=== PATIENT | male | born 1995 | race Caucasian/White ===

== ENCOUNTER 2024-05-15 17:36 | Observation (INO) ==
[2024-05-15 18:12] VITALS: TEMP 98.2
--- NOTE | 2024-05-15 18:42 | Emergency Department Note ---
Impression & Plan Hypoxia, Overdose, Respiratory failure ED Provider Note NAME: BUBBA WRIGHT AGE: 28 SEX: M : 1995 ARRIVES VIA: Walk-In INFORMANT: Patient ED PROVIDER(S): Joseph Foley DO CHIEF COMPLAINT: Intentional overdose HPI: Patient is a 28-year-old male who presents to the ER with a past medical history of bipolar disorder. History is unobtainable from the patient as he is very tired. He spoke with the personal care worker and noted that he overdosed some around 4 or 430 and took 50 tabs of 50 mg of Benadryl. He did this to sleep per her report and not to kill himself. Family is present at bedside and notes that he is extremely tired. ADDITIONAL HISTORY OBTAINED: Per HPI Chronic Medical/Social Conditions Affecting Care: Per HPI PAST MEDICAL HISTORY:See Below PAST SURGICAL HISTORY:See Below FAMILY HISTORY:See Below SOCIAL HISTORY:See Below HOME MEDICATIONS:See Below ALLERGIES:See Below VITALS:See Below PHYSICAL EXAMINATION: GENERAL: Sitting up in bed, alert but extremely tired, moving his head and stating his name but in a slow soft speech EYE EXAM: normal conjunctiva. PERRL and EOM's grossly intact. OROPHARYNX: no exudate, no erythema, lips, buccal mucosa, and tongue normal and mucous membranes are moist NECK: supple, no nuchal rigidity, no adenopathy, non-tender LUNGS: Clear to auscultation. Normal chest wall mechanics HEART: no murmurs, S1 normal and S2 normal UPPER EXTREMITIES: upper extremities are grossly normal. LOWER EXTREMITIES: No pitting edema. NEURO EXAM: Awake, alert, able to state his name very softly and move his upper extremities. MEDICAL DECISION MAKING: Patient is a 28-year-old male who presents ER for above-stated complaint. IV was established blood work was obtained. He was initially tachycardic and slightly hypertensive and hypoxic. He was placed on 2 L nasal cannula. He took 2.5 g of Benadryl. I discussed this with [place] poison control. They recommended close observation and based on his QRS and qTc he did not require bicarb or mag at this time. He did remain on 2 L nasal cannula. Labs show no significant leukocytosis or anemia. INR was unremarkable. VBG with a pH of 7.4. BMP with LFTs bilirubin and mag was unremarkable. Troponin was negative. Tox was negative. Chest x-ray was clean. Patient was given IV fluids. Updated at bedside discussed with the hospitalist for further evaluation management treatment due to the hypoxia and sedation. Consults/Care Managements Discussions: Per MDM Triage Nursing notes reviewed. Limited review of prior medical records performed Vital Signs: reviewed and remarkable for tachy Differential diagnosis: Overdose, toxicologic, infection, hypoglycemia, electrolyte abnormalities, cardiac sources, intracerebral event, neurologic, trauma, as well as other pathologies. ER treatment provided: See below Diagnostics interpreted by me include EKG and cardiac monitoring as listed below: -Cardiac Monitoring: An order was placed for continuous cardiac monitoring. The monitor shows a rate of 110 with sinus rhythm. -ECG: Sinus tachycardia rate of 108 Left axis No PVCs QTc 406 QRS 94 -Laboratory studies:Interpreted by me as stated above in MDM and shown below. Imaging studies: Xrays: As interpreted by me: Portable AP upright view of the chest shows no performed. CTs show: none Procedures:none Critical Care: I have personally spent 32 minutes of critical care time in the direct management of this patient. This includes bedside care, interpretation of diagnostic studies, and testing, discussion with consultants, patient, and family members, and other required patient management activities. This 32 minutes is in excess of all separately billable procedures. Past Med/Surg History Problem List (Updated 05/15/24 @ 23:51 by Joseph Foley DO) Respiratory failure (Acute) Hypoxia (Acute) Overdose (Acute) Abnormal ultrasound of neck Enlarged lymph node in neck Bipolar 1 disorder Medical History Back muscle spasm Bipolar 1 disorder History of IBS Mood disorder Surgical History S/P wisdom tooth extraction Family History Mother Cancer Father Prostate cancer Grandfather Prostate cancer Colorectal cancer Denies family history of Ovarian cancer Myocardial infarction Breast cancer Social History (Updated 10/03/23 @ 14:30 by TATIANA Thomas) Smoking Status: Current every day smoker Tobacco Type: Cigarettes Age Started Using Tobacco: 12; Cigarettes Per Day: 1-2; Second Hand Exposure: No; Do You Dip or Chew Tobacco: No; Hx Alcohol Use: No Preferred Language: Serbian Communication Ability: Effective Visual Impairment: No Limitations Hearing Ability: Normal Sex Worker Or Escort Required: No marital status: Single Current Living Situation: Parent current occupational status: unemployed Feels Safe at Home: Yes Childhood Exposure to Second-Hand Smoke: Yes Diet: regular Diet Comment: low carb and high protein, med fat caffeine: Yes during the past year weight has: remained stable Dental Care, Regularly: Yes Physical Activity Frequency: Daily Seatbelt Use: always Sunscreen Use: Yes Allergies Allergies Allergy/AdvReac Type Severity Reaction Status Date / Time No Known Drug Allergies Allergy Unknown Unverified 10/03/23 14:24 fruit skins AdvReac Anaphylaxis Uncoded 10/03/23 14:24 Home Meds Home Medications Medication Instructions Recorded Confirmed lurasidone 60 mg tablet (Latuda) 120 mg PO QPM 11/29/20 05/15/24 lamotrigine 100 mg tablet 200 mg PO BID 10/03/23 10/03/23 clonazepam 1 mg tablet 1 mg PO HS 05/15/24 05/15/24 dextroamphetamine-amphetamine 10 10 mg PO BID 05/15/24 05/15/24 mg tablet dextroamphetamine-amphetamine ER 20 mg PO DAILY 05/15/24 05/15/24 20 mg 24hr capsule,extend release zolpidem 10 mg tablet 10 mg PO PRN Sleep 05/15/24 Previous Rx's Medication Instructions Recorded cyclobenzaprine 5 mg tablet 5 - 10 mg (1 - 2 x 5 mg) PO TID 10/03/23 PRN muscle spasm #30 tabs Results & Data (ED) Vital Signs Vital Signs - 24 hr 05/15/24 17:55 05/15/24 17:55 05/15/24 18:07 Temperature 36.8 C Temperature Source Oral Pulse Rate 112 H 106 H Pulse Rate [Apical] Pulse Rate from SpO2 Sensor Pulse Rhythm [Apical] Pulse Strength [Apical] Respiratory Rate 19 Respiratory Effort / Characteristics Non-Labored Spontaneous Respiratory Depth Normal Respiratory Pattern Regular Blood Pressure 132/79 Blood Pressure [Right Arm] Blood Pressure Mean 96 Blood Pressure Mean [Right Arm] Blood Pressure Position Lying Blood Pressure Position [Right Arm] Pulse Oximetry 95 95 Oxygen Delivery Method Room Air Room Air Oxygen Flow Rate Sepsis Recent Fever Within 48 Hours No Sepsis New/Unexplained Change in Mental Status N/A Sepsis Action Taken by Nursing No Action Required Oxygen Flow Rate - Titration Pulse Oximetry Post Tiitration 05/15/24 18:15 05/15/24 18:15 05/15/24 18:27 Temperature Temperature Source Pulse Rate Pulse Rate [Apical] Pulse Rate from SpO2 Sensor Pulse Rhythm [Apical] Pulse Strength [Apical] Respiratory Rate Respiratory Effort / Characteristics Respiratory Depth Respiratory Pattern Blood Pressure 90/69 L 90/69 L Blood Pressure [Right Arm] Blood Pressure Mean 71 71 Blood Pressure Mean [Right Arm] Blood Pressure Position Blood Pressure Position [Right Arm] Pulse Oximetry 88 L Oxygen Delivery Method Room Air Oxygen Flow Rate Sepsis Recent Fever Within 48 Hours Sepsis New/Unexplained Change in Mental Status Sepsis Action Taken by Nursing Oxygen Flow Rate - Titration 2 Pulse Oximetry Post Tiitration 96 05/15/24 18:30 05/15/24 18:30 05/15/24 18:30 Temperature Temperature Source Pulse Rate Pulse Rate [Apical] Pulse Rate from SpO2 Sensor Pulse Rhythm [Apical] Pulse Strength [Apical] Respiratory Rate Respiratory Effort / Characteristics Respiratory Depth Respiratory Pattern Blood Pressure 118/82 118/82 118/82 Blood Pressure [Right Arm] Blood Pressure Mean 91 91 91 Blood Pressure Mean [Right Arm] Blood Pressure Position Blood Pressure Position [Right Arm] Pulse Oximetry Oxygen Delivery Method Oxygen Flow Rate Sepsis Recent Fever Within 48 Hours Sepsis New/Unexplained Change in Mental Status Sepsis Action Taken by Nursing Oxygen Flow Rate - Titration Pulse Oximetry Post Tiitration 05/15/24 18:30 05/15/24 18:39 05/15/24 18:39 Temperature Temperature Source Pulse Rate 106 H 106 H 115 H Pulse Rate [Apical] Pulse Rate from SpO2 Sensor 106 H 115 H Pulse Rhythm [Apical] Pulse Strength [Apical] Respiratory Rate 15 18 Respiratory Effort / Characteristics Respiratory Depth Respiratory Pattern Blood Pressure Blood Pressure [Right Arm] Blood Pressure Mean Blood Pressure Mean [Right Arm] Blood Pressure Position Blood Pressure Position [Right Arm] Pulse Oximetry 97 93 97 Oxygen Delivery Method Nasal Cannula Oxygen Flow Rate 2 Sepsis Recent Fever Within 48 Hours Sepsis New/Unexplained Change in Mental Status Sepsis Action Taken by Nursing Oxygen Flow Rate - Titration Pulse Oximetry Post Tiitration 05/15/24 18:45 05/15/24 18:45 05/15/24 18:45 Temperature Temperature Source Pulse Rate Pulse Rate [Apical] Pulse Rate from SpO2 Sensor Pulse Rhythm [Apical] Pulse Strength [Apical] Respiratory Rate Respiratory Effort / Characteristics Respiratory Depth Respiratory Pattern Blood Pressure 117/88 117/88 117/88 Blood Pressure [Right Arm] Blood Pressure Mean 96 96 96 Blood Pressure Mean [Right Arm] Blood Pressure Position Blood Pressure Position [Right Arm] Pulse Oximetry Oxygen Delivery Method Oxygen Flow Rate Sepsis Recent Fever Within 48 Hours Sepsis New/Unexplained Change in Mental Status Sepsis Action Taken by Nursing Oxygen Flow Rate - Titration Pulse Oximetry Post Tiitration 05/15/24 18:45 05/15/24 18:48 05/15/24 18:51 Temperature Temperature Source Pulse Rate 102 H 100 H Pulse Rate [Apical] Pulse Rate from SpO2 Sensor 102 H Pulse Rhythm [Apical] Pulse Strength [Apical] Respiratory Rate 4 L 7 L Respiratory Effort / Characteristics Respiratory Depth Respiratory Pattern Blood Pressure 117/88 Blood Pressure [Right Arm] Blood Pressure Mean 96 Blood Pressure Mean [Right Arm] Blood Pressure Position Blood Pressure Position [Right Arm] Pulse Oximetry 95 80 L Oxygen Delivery Method Oxygen Flow Rate Sepsis Recent Fever Within 48 Hours Sepsis New/Unexplained Change in Mental Status Sepsis Action Taken by Nursing Oxygen Flow Rate - Titration Pulse Oximetry Post Tiitration 05/15/24 19:15 05/15/24 19:24 05/15/24 19:37 Temperature Temperature Source Pulse Rate 94 H Pulse Rate [Apical] 90 Pulse Rate from SpO2 Sensor 94 H Pulse Rhythm [Apical] Regular Pulse Strength [Apical] Normal Respiratory Rate 23 16 Respiratory Effort / Characteristics Non-Labored Spontaneous Respiratory Depth Normal Respiratory Pattern Regular Blood Pressure 128/87 Blood Pressure [Right Arm] 130/91 Blood Pressure Mean 103 Blood Pressure Mean [Right Arm] 104 Blood Pressure Position Blood Pressure Position [Right Arm] Lying Pulse Oximetry 98 98 Oxygen Delivery Method Nasal Cannula Oxygen Flow Rate 2 Sepsis Recent Fever Within 48 Hours Sepsis New/Unexplained Change in Mental Status Sepsis Action Taken by Nursing Oxygen Flow Rate - Titration Pulse Oximetry Post Tiitration 05/15/24 19:42 05/15/24 19:45 05/15/24 19:45 Temperature Temperature Source Pulse Rate Pulse Rate [Apical] Pulse Rate from SpO2 Sensor Pulse Rhythm [Apical] Pulse Strength [Apical] Respiratory Rate Respiratory Effort / Characteristics Respiratory Depth Respiratory Pattern Blood Pressure 130/91 125/86 125/86 Blood Pressure [Right Arm] Blood Pressure Mean 115 100 100 Blood Pressure Mean [Right Arm] Blood Pressure Position Blood Pressure Position [Right Arm] Pulse Oximetry Oxygen Delivery Method Oxygen Flow Rate Sepsis Recent Fever Within 48 Hours Sepsis New/Unexplained Change in Mental Status Sepsis Action Taken by Nursing Oxygen Flow Rate - Titration Pulse Oximetry Post Tiitration 05/15/24 19:45 05/15/24 19:54 05/15/24 20:00 Temperature Temperature Source Pulse Rate 91 H 93 H Pulse Rate [Apical] Pulse Rate from SpO2 Sensor 91 H 92 H Pulse Rhythm [Apical] Pulse Strength [Apical] Respiratory Rate 21 23 Respiratory Effort / Characteristics Respiratory Depth Respiratory Pattern Blood Pressure 130/89 Blood Pressure [Right Arm] Blood Pressure Mean 98 Blood Pressure Mean [Right Arm] Blood Pressure Position Blood Pressure Position [Right Arm] Pulse Oximetry 98 98 Oxygen Delivery Method Oxygen Flow Rate Sepsis Recent Fever Within 48 Hours Sepsis New/Unexplained Change in Mental Status Sepsis Action Taken by Nursing Oxygen Flow Rate - Titration Pulse Oximetry Post Tiitration 05/15/24 20:00 05/15/24 20:00 05/15/24 20:15 Temperature Temperature Source Pulse Rate 102 H Pulse Rate [Apical] Pulse Rate from SpO2 Sensor 101 H Pulse Rhythm [Apical] Pulse Strength [Apical] Respiratory Rate 23 Respiratory Effort / Characteristics Respiratory Depth Respiratory Pattern Blood Pressure 130/89 113/81 Blood Pressure [Right Arm] Blood Pressure Mean 98 94 Blood Pressure Mean [Right Arm] Blood Pressure Position Blood Pressure Position [Right Arm] Pulse Oximetry 99 Oxygen Delivery Method Oxygen Flow Rate Sepsis Recent Fever Within 48 Hours Sepsis New/Unexplained Change in Mental Status Sepsis Action Taken by Nursing Oxygen Flow Rate - Titration Pulse Oximetry Post Tiitration 05/15/24 20:15 Temperature Temperature Source Pulse Rate Pulse Rate [Apical] Pulse Rate from SpO2 Sensor Pulse Rhythm [Apical] Pulse Strength [Apical] Respiratory Rate Respiratory Effort / Characteristics Respiratory Depth Respiratory Pattern Blood Pressure 113/81 Blood Pressure [Right Arm] Blood Pressure Mean 94 Blood Pressure Mean [Right Arm] Blood Pressure Position Blood Pressure Position [Right Arm] Pulse Oximetry Oxygen Delivery Method Oxygen Flow Rate Sepsis Recent Fever Within 48 Hours Sepsis New/Unexplained Change in Mental Status Sepsis Action Taken by Nursing Oxygen Flow Rate - Titration Pulse Oximetry Post Tiitration Laboratory Data 05/15/24 18:08 05/15/24 18:08 Lab Results 05/15/24 05/15/24 05/15/24 Range/Units 18:08 19:03 19:05 WBC 9.32 (4.8-10.8) K/ul RBC 4.75 (4.70-6.10) M/uL Hgb 14.3 (14.0-18.0) g/dl Hct 42.4 (42.0-52.0) % MCV 89.3 (80.0-100.0) fL MCH 30.1 (25.0-34.0) pg MCHC 33.7 (32.0-36.0) g/dL RDW Std Deviation 43.3 (36.4-46.3) fL RDW Coeff of Domitila 13.2 (11.5-14.5) % Plt Count 323 (130-400) K/uL MPV 9.0 L (9.4-12.4) fL Immature Gran % (Auto) 0.3 % Neut % (Auto) 53.8 % Lymph % (Auto) 23.9 % [place] % (Auto) 13.7 % Eos % (Auto) 7.2 % Baso % (Auto) 1.1 % Neut # (Auto) 5.01 (1.40-6.50) K/uL Lymph # (Auto) 2.23 (1.20-3.40) K/uL [place] # (Auto) 1.28 H (0.11-0.59) K/uL Eos # (Auto) 0.67 H (0.00-0.50) K/uL Baso # (Auto) 0.10 (0.00-0.20) K/uL Immature Gran # (Auto) 0.03 (0.01-0.20) K/uL PT 11.6 (9.0-12.0) Seconds INR 1.1 (0.9-1.1) VBG pH 7.42 H (7.36-7.41) VBG pCO2 42 (38-50) mmHg VBG pO2 78 mmHg VBG HCO3 27 mmol/L VBG O2 Saturation 97.1 % VBG Base Excess 2.4 mEq/L Sodium 139 (136-145) mmol/L Potassium 3.6 (3.5-5.1) mmol/L Chloride 104 (98-107) mmol/L Carbon Dioxide 26 (21-32) mmol/L Anion Gap 9 (3-11) BUN 23 (6-23) mg/dl Creatinine 1.39 (0.6-1.4) mg/dl Est Cr Clr Drug Dosing Not Reportable Est GFR ( Amer) 78.3 ml/min Est GFR (Non-Af Amer) 67.5 ml/min BUN/Creatinine Ratio 16.5 (10-20) Glucose 111 H (70-99(Fasting)) mg/dl Lactate 0.9 (0.4-2.0) mmol/L Calcium 9.3 (8.6-10.3) mg/dl Magnesium 2.0 (1.7-2.4) mg/dl Total Bilirubin 0.6 (0.2-1.0) mg/dl AST 46 H (13-39) U/L ALT 34 (7-52) U/L Alkaline Phosphatase 43 (34-104) U/L Troponin I High Sens 13.4 (0-20) pg/ml Total Protein 7.3 (6.0-8.3) gm/dl Albumin 4.7 (3.4-5.0) gm/dl Globulin 2.6 (2.5-4.0) gm/dl Albumin/Globulin Ratio 1.8 (0.9-2) Salicylates < 3.0 L (3.0-30) mg/dl Acetaminophen < 3 L (10-30) ug/ml Ethyl Alcohol mg/dL < 10.0 (<10.0) mg/dl Administered Medications Lactated Ringer's (Lr) 1,000 mls @ 125 mls/hr IV .Q8H [facility] Stop: 05/16/24 12:44 Last Admin: 05/15/24 20:49 Dose: 125 mls/hr Documented By: RY Discontinued Medications Sodium Chloride (Nss) 2,000 mls @ 999 mls/hr IV .Q2H1M [facility] Stop: 05/15/24 20:45 Last Infusion: 05/15/24 21:04 Dose: Infused Documented By: Admin: 05/15/24 18:54 Dose: 999 mls/hr Documented By: TNK Discharge Plan Visit Data Chief Complaint: Overdose (Intentional) Stated Complaint: OVERDOSE ON SLEEPING MED ED Provider: Joseph Foley Discharge Problem: Hypoxia, Overdose, Respiratory failure Discharge Instructions Interventions: ED Discharge Assessment Last Done: 05/15/24 22:14 Discharge Problem: Overdose Qualifiers: Encounter type: initial encounter Injury intent: intentional self-harm Q ualified Code(s): T50.902A - Poisoning by unspecified drugs, medicaments and biological substances, intentional self-harm, initial encounter Respiratory failure Qualifiers: Chronicity: unspecified Respiratory failure complication: unspecified whether with hypoxia or hypercapnia Qualified Code(s): J96.90 - Respiratory failure, unspecified, unspecified whether with hypoxia or hypercapnia
[2024-05-15] MEDS: SODIUM CHLORIDE 0.9% 2,000 ML IV SCH (18:54)
[2024-05-15 19:01] LABS: Basophils % (auto) 1.1 %; Eosinophils # (auto) 0.67 K/uL (0.00-0.50); Eosinophils % (auto) 7.2 %; Hematocrit (blood only) 42.4 % (42.0-52.0); Hemoglobin 14.3 g/dl (14.0-18.0); Immature Granulocytes # (auto) 0.03 K/uL (0.01-0.20); Immature Granulocytes % (auto) 0.3 %; Lymphocytes # (auto) 2.23 K/uL (1.20-3.40); Lymphocytes % (auto) 23.9 %; Mean Corpuscular Hemoglobin 30.1 pg (25.0-34.0); Mean Corpuscular Hgb Conc 33.7 g/dL (32.0-36.0); Mean Corpuscular Volume 89.3 fL (80.0-100.0); Monocytes # (auto) 1.28 K/uL (0.11-0.59); Monocytes % (auto) 13.7 %; Neutrophils # (auto) 5.01 K/uL (1.40-6.50); Neutrophils % (auto) 53.8 %; Platelet Count 323 K/uL (130-400); RDW Coefficient of Variation 13.2 % (11.5-14.5); RDW Standard Deviation 43.3 fL (36.4-46.3); Red Blood Count 4.75 M/uL (4.70-6.10); White Blood Count 9.32 K/ul (4.8-10.8)
[2024-05-15 19:07] LABS: Alanine Aminotransferase 34 U/L (7-52); Albumin Globulin Ratio 1.8 (0.9-2); Albumin Level 4.7 gm/dl (3.4-5.0); Alkaline Phosphatase 43 U/L (34-104); Anion Gap 9 (3-11); Aspartate Aminotransferase 46 U/L (13-39); BUN Creatinine Ratio 16.5 (10-20); Bilirubin,Total 0.6 mg/dl (0.2-1.0); Blood Urea Nitrogen 23 mg/dl (6-23); Calcium 9.3 mg/dl (8.6-10.3); Carbon Dioxide 26 mmol/L (21-32); Chloride 104 mmol/L (98-107); Est GFR (African American) 78.3 ml/min; Est GFR (Non-African American) 67.5 ml/min; Globulin 2.6 gm/dl (2.5-4.0); Glucose 111 mg/dl (70-99(Fasting)); Potassium 3.6 mmol/L (3.5-5.1); Sodium 139 mmol/L (136-145); Total Protein 7.3 gm/dl (6.0-8.3)
[2024-05-15 19:14] LABS: Troponin I High Sensitivity 13.4 pg/ml (0-20)
[2024-05-15 19:21] LABS: Base Excess VBG 2.4 mEq/L; HCO3 VBG 27 mmol/L; Oxygen Saturation VBG 97.1 %; PCO2 VBG 42 mmHg (38-50); PO2 VBG 78 mmHg; pH VBG 7.42 (7.36-7.41)
--- NOTE | 2024-05-15 19:29 | History & Physical Report ---
Date of Service May 15, 2024 Assessment & Plan (1) Overdose: Plan: Benadryl overdose on the evening of 05/15 Patient reportedly took 2.5 g of Benadryl (50 mg x 50 tablets) on 05/15 Patient is mildly tachycardic and hypoxic on arrival NSS 2000 mL IV given in the ED Reach out to [facility] Supportive care Seizure precautions Strict n.p.o. for now One-to-one observation Psychiatry consulted 0.5 mg IV Ativan as needed for anxiety/agitation 1 mg IV Ativan q5m x 3 max doses as needed for active seizure activity Continue IVF maintenance with LR at 125mL/hr x 2 L A.m. CBC, BMP (2) Bipolar 1 disorder: Plan: Hold p.o. medications for now, and can reassess in the morning Plan Disposition: Admit to PCU telemetry Full code N.p.o. for now, and then advance to regular diet once patient is oriented VTE PPx: Low risk History of Present Illness Chief Complaint: Overdose Primary Care Provider: Nish RogersDO Huff is a 28-year-old male with PMH of bipolar 1 disorder, insomnia, and suicidal ideations. He was brought in by his parents on 05/15 for Benadryl overdose. Parents were concerned he was abusing sleep medications. Patient took 50 pills of 50 mg diphenhydramine (2.5 g total). Patient's mother is at the bedside and provides history at this time, as patient is unable to in his current state. She reports that she received a call from the patient's father around 5 PM setting of the patient was acting "off" and speaking incoherently. He did tell them that he took sleep aids, but not how much. Patient's mom counted the pills in his sleep a bottle (diphenhydramine); she believes it was a 96 pill bottle, and that 46 pills were left. She is unsure if he might of taken some the prior day, although the patient had said earlier that he had gone to buy himself a sl eep aid that day. Mom at bedside does report that he had an episode earlier this month where he felt despondent, as if things were out of control. However she denies any prior suicide attempts. Patient also takes Klonopin for anxiety attacks; however they did not bring in his medication bottles from home to check pill numbers. Patient's mother believes that he took his regular morning medications, and does not believe there have been any recent change in medications. Mother does note that he sometimes does not remember what pills he takes. No history of seizures. No witnessed seizure-like activity since he took the pills. She does not believe that he has been using alcohol recently, but he does smoke tobacco cigarettes. Patient is hypertensive at 106 bpm at time of admission; SpO2 93% on 2L NC. ED course: NSS 2000 mg IV Unable to obtain ROS at this time. Reached out to [facility]. Recommended supportive care and benzodiazepines as needed. Allergies Allergy/AdvReac Type Severity Reaction Status Date / Time No Known Drug Allergies Allergy Unknown Verified 05/16/24 02:31 fruit skins AdvReac Anaphylaxis Uncoded 10/03/23 14:24 Home Medications Medication Instructions Recorded Confirmed Type lurasidone 60 mg tablet (Latuda) 120 mg PO QPM 11/29/20 05/15/24 History cyclobenzaprine 5 mg tablet 5 - 10 mg (1 - 2 x 5 mg) PO TID 10/03/23 10/03/23 Rx PRN muscle spasm #30 tabs lamotrigine 100 mg tablet 200 mg PO BID 10/03/23 10/03/23 History clonazepam 1 mg tablet 1 mg PO HS 05/15/24 05/15/24 History dextroamphetamine-amphetamine 10 10 mg PO BID 05/15/24 05/15/24 History mg tablet dextroamphetamine-amphetamine ER 20 mg PO DAILY 05/15/24 05/15/24 History 20 mg 24hr capsule,extend release zolpidem 10 mg tablet 10 mg PO PRN Sleep 05/15/24 History Past Med/Surg History Problem List (Updated 05/15/24 @ 23:51 by Joseph Foley DO) Respiratory failure (Acute) Hypoxia (Acute) Overdose (Acute) Abnormal ultrasound of neck Enlarged lymph node in neck Bipolar 1 disorder Medical History Back muscle spasm Bipolar 1 disorder History of IBS Mood disorder Surgical History S/P wisdom tooth extraction Family History Mother Cancer Father Prostate cancer Grandfather Prostate cancer Colorectal cancer Denies family history of Ovarian cancer Myocardial infarction Breast cancer Social History (Updated 10/03/23 @ 14:30 by TATIANA Thomas) Smoking Status: Current every day smoker Tobacco Type: Cigarettes Age Started Using Tobacco: 12; Cigarettes Per Day: 1-2; Second Hand Exposure: No; Do You Dip or Chew Tobacco: No; Hx Alcohol Use: No Preferred Language: Turkish Communication Ability: Effective Visual Impairment: No Limitations Hearing Ability: Normal Scaffolder Required: No marital status: Single Current Living Situation: Parent current occupational status: unemployed Feels Safe at Home: Yes Childhood Exposure to Second-Hand Smoke: Yes Diet: regular Diet Comment: low carb and high protein, med fat caffeine: Yes during the past year weight has: remained stable Dental Care, Regularly: Yes Physical Activity Frequency: Daily Seatbelt Use: always Sunscreen Use: Yes Review of Systems Review of Systems: See HPI above Physical Exam Physical Exam: General: Lethargic; dazed; confused; blank stare; non-toxic appearing; SpO2 98% on 2L NC HEENT: normocephalic, atraumatic; no scleral icterus; PERRLA; unable to assess vision Neck: supple; no lymphadenopathy; trachea midline Skin: warm, dry without signs of tenting; no cyanosis; no rashes, bruising, lesions, or erythema noted CV: chest wall NTP; RR, tachycardic around 100 bpm; S1/S2 normal; no murmurs/rubs/gallops; pulses intact and symmetric at radial, DP, and PT Lungs: no acute respiratory distress; symmetrical chest wall expansion; clear breath sounds across all lung mcdermott w/o adventitious sounds; no wheezing ABD: Soft, NTP; BS present; no rebound/guarding; no distention MSK: Occasional jerks and tremors; no edema noted in the LEs b/l, nonerythematous Neuro: Patient is alert and oriented to name and date of , but all other questions he mumbles incoherently; he does respond to some commands such as wiggling toes; he appears largely dazed and confused; unable to assess sensation Results & Data Results & Data Vital Signs (Past 12 Hours) Vital Signs Temp Pulse Resp BP Pulse Ox O2 Del Method O2 Flow Rate 05/15/24 18:39 106 H 93 Nasal Cannula 2 05/15/24 18:27 88 L Room Air 05/15/24 18:07 106 H 05/15/24 17:55 95 Room Air 05/15/24 17:55 36.8 C 112 H 19 132/79 95 Room Air Laboratory Results Abnormal lab results 05/15/24 05/15/24 Range/Units 18:08 19:03 MPV 9.0 L (9.4-12.4) fL [place] # (Auto) 1.28 H (0.11-0.59) K/uL Eos # (Auto) 0.67 H (0.00-0.50) K/uL VBG pH 7.42 H (7.36-7.41) Glucose 111 H (70-99(Fasting)) mg/dl AST 46 H (13-39) U/L ECG Additional Comments: ECG revealed sinus tachycardia at 108 bpm; QTc 460 No prior EKGs for comparison Code Status & VTE Plan Code Status Full code (confirmed by patient's mother at the bedside, as patient does not exhibit medical capacity at this time in his current state) VTE Prophylaxis Plan VTE Prophylaxis will be ordered: Yes Supervising Physician Co-Signing Physician Notes Attending addendum: I have physically seen this patient, have supervised the GARRY's activities, and agree with the H&P unless as otherwise noted. Assessment and Plan: Benadryl overdose- Telemetry admission Monitor for anticholinergic side effects Status post 2 L normal saline bolus in ED Continue LR at 125 mL/h x 2 additional liters One-to-one observation Consult psychiatry Lorazepam 0.5 mg IV every 8 hours as needed for anxiety/agitation Lorazepam 1 mg IV Q 5 minutes x 3 max doses for potential seizure activity Repeat CBC with differential and basic metabolic panel in the a.m. Bipolar 1 disorder- Holding oral medications To be restarted by psychiatry at their discretion PG Care Time/CCT Total # of Minutes Spent Total Time Spent with Patient: Total time spent is greater than 50% in coordination of care (as documented) at patient's floor/unit and/or counseling patient: [place] [address] INT INP/OBS CARE 3/75MIN Patient Type New Medical Decision Making High Complexity Diagnoses Overdose T50.901A Bipolar 1 disorder F31.9
[2024-05-15 19:34] LABS: Acetaminophen < 3 ug/ml (10-30); Salicylate < 3.0 mg/dl (3.0-30)
[2024-05-15 19:36] LABS: INR 1.1 (0.9-1.1); Prothrombin Time 11.6 Seconds (9.0-12.0)
[2024-05-15] MEDS: LACTATED RINGER'S 1,000 ML IV SCH (20:49)
[2024-05-15] MEDS ORDERED: LORazepam 2 MG/1 ML VIAL IV PRN (22:14)
[2024-05-15] MEDS ORDERED: ONDANSETRON INJ 2 MG/ML 2 ML VIAL IV PRN (22:14)
[2024-05-16] MEDS: LORazepam 2 MG/1 ML VIAL IV PRN (02:32)
[2024-05-16 02:52] LABS: Appearance Urine Clear (Clear); Bilirubin Urine Negative (Negative); Blood Urine Negative (Negative); Color Urine Yellow; Glucose Urine UA Negative (Negative); Ketones Urine Trace (Negative); Leukocyte Esterase Urine Negative (Negative); Nitrite Urine Negative (Negative); Protein Urine Negative (Negative); Specific Gravity Urine 1.013 (1.000-1.030); Urobilinogen Urine Negative (Negative); pH Urine 6.5 (4.5-7.5)
[2024-05-16 03:31] LABS: Amphetamines+Metham, Urine Pos (Neg); Barbiturates, Urine Neg (Neg); Benzodiazepine, Urine Neg (Neg); Cocaine, Urine Neg (Neg); Fentanyl, Urine Neg (Neg); MDMA (Ecstacy), Urine Neg (Neg); Marijuana, Urine Neg (Neg); Methadone, Urine Neg (Neg); Opiate, Urine Neg (Neg); Phencyclidine, Urine Neg (Neg)
[2024-05-16 06:15] LABS: Hemoglobin 12.7 g/dl (14.0-18.0); Mean Corpuscular Hemoglobin 29.4 pg (25.0-34.0); Mean Corpuscular Hgb Conc 32.6 g/dL (32.0-36.0); Mean Corpuscular Volume 90.3 fL (80.0-100.0); Mean Platelet Volume 8.8 fL (9.4-12.4); Platelet Count 271 K/uL (130-400); RDW Coefficient of Variation 13.3 % (11.5-14.5); RDW Standard Deviation 44.9 fL (36.4-46.3); Red Blood Count 4.32 M/uL (4.70-6.10); White Blood Count 8.74 K/ul (4.8-10.8)
[2024-05-16 06:33] LABS: Anion Gap 5 (3-11); Blood Urea Nitrogen 13 mg/dl (6-23); Calcium 7.7 mg/dl (8.6-10.3); Carbon Dioxide 25 mmol/L (21-32); Chloride 110 mmol/L (98-107); Est GFR (African American) 116.5 ml/min; Est GFR (Non-African American) 100.6 ml/min; Glucose 75 mg/dl (70-99(Fasting)); Magnesium 2.1 mg/dl (1.7-2.4); Potassium 4.1 mmol/L (3.5-5.1); Sodium 140 mmol/L (136-145)
--- NOTE | 2024-05-16 07:26 | Electrocardiogram Report ---
Test Reason : Blood Pressure : */* mmHG Vent. Rate : 108 BPM Atrial Rate : 108 BPM P-R Int : 150 ms QRS Dur : 94 ms QT Int : 344 ms P-R-T Axes : 45 -39 27 degrees QTcB Int : 460 ms Sinus tachycardia Possible Left atrial enlargement Left axis deviation Abnormal ECG No previous ECGs available Confirmed by Gabriel Cano ([id number]) on 05/16/2024 7:25:47 AM Referred By: REFERRED SELF Confirmed By: Gabriel Cano
--- NOTE | 2024-05-16 08:43 | XRay Report ---
SUPINE PORTABLE AP CHEST RADIOGRAPH CLINICAL HISTORY: Overdose. COMPARISON STUDY: No previous studies for comparison. FINDINGS: Lung volumes are normal. Lungs are clear. There is no pneumothorax or pleural effusion. Car diomediastinal silhouette is unremarkable on supine exam. There is no evidence for pulmonary edema. IMPRESSION: No acute cardiopulmonary findings. ACT 112: Negative or not required by law. Electronically signed by: Brett Zavala M.D. 05/16/2024 8:41 AM
[2024-05-16] MEDS: ACETAMINOPHEN 1,000 MG/100 ML VIAL IV PRN (09:39)
--- NOTE | 2024-05-16 11:36 | Electrocardiogram Report ---
Test Reason : Blood Pressure : */* mmHG Vent. Rate : 91 BPM Atrial Rate : 91 BPM P-R Int : 168 ms QRS Dur : 98 ms QT Int : 386 ms P-R-T Axes : 43 -22 13 degrees QTcB Int : 474 ms Normal sinus rhythm Normal ECG When compared with ECG of 16-May-2024 00:00, (unconfirmed) No significant change was found Confirmed by Gabriel Cano ([id number]) on 05/16/2024 11:36:03 AM Referred By: REFERRED SELF Confirmed By: Gabriel Cano
--- NOTE | 2024-05-16 11:36 | Electrocardiogram Report ---
Test Reason : Blood Pressure : */* mmHG Vent. Rate : 101 BPM Atrial Rate : 101 BPM P-R Int : 162 ms QRS Dur : 98 ms QT Int : 380 ms P-R-T Axes : 44 -29 26 degrees QTcB Int : 492 ms Sinus tachycardia Possible Left atrial enlargement Borderline ECG When compared with ECG of 15-May-2024 18:42, No significant change was found Confirmed by Gabriel Cano ([id number]) on 05/16/2024 11:36:08 AM Referred By: REFERRED SELF Confirmed By: Gabriel Cano
--- NOTE | 2024-05-16 12:26 | Psychiatric Consultation ---
Date of Consultation May 16, 2024 Impression / Recommendations Impression Refugio is a 28 yo man with a history of BPAD, anxiety, ADHD and insomnia admitted medically following overdose of Benadryl with intent of seeking sedation for sleep. Diagnostically consistent with insomnia likely due to generalized anxiety and possible substance use component vs impulsivity d/t ADHD. Acute risk of self-harm is low given denial of SI, future-oriented, strong deterrents to suicide, future-oriented and reassuring collateral. Chronic risk of self-harm is moderate given comorbid diagnoses, periods of impulsivity but also with multiple protective factors including outpatient psychiatric provider, supportive family, positive problem solving, engagement with exercise/mindfulness practice and potential for improved coping skills. Discussed ways to reduce modifiable risk factors to reduce acute and chronic risk of self-harm including consideration for outpatient therapy such as CBT or CBT-I to address insomnia and/or sleep study as well working on good sleep hygiene habits and continuing to address sources of anxiety. He does not meet 302 criteria and declines voluntary inpatient treatment. Offered option for referrals for residential or outpatient substance use treatment which he declines. He also declines CBT or CBT-I referrals. He is willing to consider discussing option for sleep study with his primary care provider. He desires discharge to home once medically stable. Overall, I spent a total of 60 minutes with this case including review of chart records, review of labwork, direct evaluation of the patient at bedside, counseling the patient, discussion of the patient with the hospitalist provider, discussion with the psychiatric liason during clinical rounds, review of collateral historian information from the family and documentation in the electronic health record. (1) Generalized anxiety disorder with panic attacks: (2) Insomnia due to psychological stress: (3) Bipolar 1 disorder: Plan -From psychiatric standpoint safe for discharge to home -Resume prior to admission psychiatric medications -Strongly encourage CBT-I and/or CBT in the future should anxiety/mood symptoms/insomnia issues persist Psych History Identifying Data 28 yo man with a history of BPAD, insomnia, ADHD and anxiety admitted medically following intentional overdose of Benadryl. Psychiatry consulted for risk assessment and recommendations due to overdose. Chief Complaint "It wasn't a suicide attempt, I was just trying to sedate myself so I could sleep". History of Present Illness Refugio was brought to the hospital due to his parents concern for behavioral change and he then acknowledged taking 50 tabs of Benadryl 50mg. In assessing his intent he adamantly denies that he took the Benadryl to or out of ambivalence about being alive, rather states he took it in effort to "turn off my brain" so he could sleep. He reports a long history of insomnia and past misuse of Ambien and alcohol to get significant sedation effect to sleep. He finds that his thoughts before bed are often ruminative, anxious or self- critical and he uses medication or substances at times to sedate himself. He had never taken Benadryl before but knew it was an "antihistamine" and that "I would need horse tranquilizer level because of my high tolerance to sedation" and therefore took 50 tabs thinking this would offer him good sedation without any negative effects. He states he never considered this could cause any harm noting "no one has ever from taking too many antihistamines". He denies any current symptoms of depression, feels he recently came out of a d epressive episode a few weeks ago citing his re-involvement in [employer] as a sign his motivation, energy and mood have improved. Does note that he will feel self doubt and self criticism such as "my inadequacy as an artist" as symptoms that can overlap between his depression, anxiety and insomnia. He denies any recent or current SI. Denies any past suicide attempts. Cites strong deterrents to suicide and reasons for living as "my parents, my friends, my nephew, the [place] one day will be mine". He denies any problematic alcohol use in over a year and hasn't taken any Ambien in the last month. He is not interested in any type of therapy, substance use treatment or inpatient psychiatric treatment. Reviewed option for dual diagnosis or CBT which he declines stating "I'm not that much of a druggie". He also declines CBT-I referral. Has never had a sleep study. He gave permission fir us to speak with his mother. Additional collateral per psych liason's discussion with his mother per psych liason note today: "Mother denies any additional safety concerns including recent SI statements or other indicators that would suggest a suicide attempt. Guns are in the home, patient and father are hunters; they only own rifles (no handguns/pistols) and they are secure in a safe with a combination. Mother does not feel the guns are a safety concern but is willing to consider removing them if things would escalate. Mother is willing to monitor/secure patient's medications, she already counts the controlled medications to avoid over use/abuse. She confirms that patient is compliant with medications and outpatient appointments. Mother and cousin had other general/appropriate questions and were answered to satisfaction. Mother is supportive and will continue to encourage patient to seek outpatient therapy." Allergies Allergy/AdvReac Type Severity Reaction Status Date / Time No Known Drug Allergies Allergy Unknown Verified 05/16/24 02:31 fruit skins AdvReac Anaphylaxis Uncoded 10/03/23 14:24 Home Medications Medication Instructions Recorded Confirmed Type lurasidone 60 mg tablet (Latuda) 120 mg PO QPM 11/29/20 05/15/24 History cyclobenzaprine 5 mg tablet 5 - 10 mg (1 - 2 x 5 mg) PO TID 10/03/23 10/03/23 Rx PRN muscle spasm #30 tabs lamotrigine 100 mg tablet 200 mg PO BID 10/03/23 10/03/23 History clonazepam 1 mg tablet 1 mg PO HS 05/15/24 05/15/24 History dextroamphetamine-amphetamine 10 10 mg PO BID 05/15/24 05/15/24 History mg tablet dextroamphetamine-amphetamine ER 20 mg PO DAILY 05/15/24 05/15/24 History 20 mg 24hr capsule,extend release zolpidem 10 mg tablet 10 mg PO PRN Sleep 05/15/24 History Patient History Medical History Back muscle spasm Bipolar 1 disorder History of IBS Mood disorder Surgical History S/P wisdom tooth extraction Family History Mother Cancer Father Prostate cancer Grandfather Prostate cancer Colorectal cancer Denies family history of Ovarian cancer Myocardial infarction Breast cancer Social History (Updated 10/03/23 @ 14:30 by TATIANA Thomas) Smoking Status: Current every day smoker Tobacco Type: Cigarettes Age Started Using Tobacco: 12; Cigarettes Per Day: 1-2; Second Hand Exposure: No; Do You Dip or Chew Tobacco: No; Hx Alcohol Use: No Preferred Language: Spanish Communication Ability: Effective Visual Impairment: No Limitations Hearing Ability: Normal 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 marital status: Single Current Living Situation: Parent current occupational status: unemployed Feels Safe at Home: Yes Childhood Exposure to Second-Hand Smoke: Yes Diet: regular Diet Comment: low carb and high protein, med fat caffeine: Yes during the past year weight has: remained stable Dental Care, Regularly: Yes Physical Activity Frequency: Daily Seatbelt Use: always Sunscreen Use: Yes Physical Exam Psychiatric: Orientation: alert and oriented x 3 Apperance: appropriately dressed and appropriately groomed Eye Contact: good eye contact Motor Behavior: no abnormal motor movements Speech: normal rate/rhythm/volume of speech Affect: + constricted affect Mood: + anxious mood; no depressed mood Thought Process: goal directed thought process Thought Content: reality based without delusions Suicidal Thoughts: denies suicidal thoughts Homicidal Thoughts: denies homicidal thoughts Hallucinations: no auditory hallucinations and no visual hallucinations Cognition: attention grossly intact and language grossly intact Estimated Intelligence: consistent with education level Insight: + fair insight Judgment: + limited judgement Vital Signs (Past 24 Hours): Last Vital Signs Temp 36.8 C 05/15/24 17:55 Pulse 72 05/16/24 11:18 Resp 19 05/16/24 11:18 BP 119/76 05/16/24 11:18 Pulse Ox 96 05/16/24 11:18 O2 Del Method Room Air 05/16/24 11:18 O2 Flow Rate 2 05/15/24 21:00 Results & Data (PSY) Medications Administered Lactated Ringer's (Lr) 1,000 mls @ 125 mls/hr IV .Q8H [facility] Stop: 05/16/24 12:44 Last Admin: 05/16/24 04:34 Dose: 125 mls/hr Documented By: Infusion: 05/16/24 04:33 Dose: Infused Documented By: Admin: 05/15/24 20:49 Dose: 125 mls/hr Documented By: RY Acetaminophen (Ofirmev) 1,000 mg in 100 mls @ 400 mls/hr IV Q8H PRN PRN Reason: Pain/Fever Stop: 05/18/24 22:13 Last Infusion: 08/31/24 09:55 Dose: Infused Documented By: Admin: 05/16/24 09:39 Dose: 400 mls/hr Documented By: RICHAR Lorazepam (Lorazepam 2 Mg/1 Ml Vial) 0.5 mg IV Q8H PRN PRN Reason: Anxiety/Agitation Stop: 06/14/24 22:13 Last Admin: 05/16/24 02:32 Dose: 0.5 mg Documented By: LANDON Coding Level of Care Code 61732 IN/OBS CONSULT LVL 4,60M Diagnoses Generalized anxiety disorder with panic attacks F41.1; F41.0 Insomnia due to psychological stress F51.02 Bipolar 1 disorder F31.9
[2024-05-16 14:00] VITALS: RESP 13
--- NOTE | 2024-05-16 16:11 | Discharge Summary ---
Date of Service May 16, 2024 Admission HPI Per Admitting Provider Refugio is a 28-year-old male with PMH of bipolar 1 disorder, insomnia, and suicidal ideations. He was brought in by his parents on 05/15 for Benadryl overdose. Parents were concerned he was abusing sleep medications. Patient took 50 pills of 50 mg diphenhydramine (2.5 g total). Patient's mother is at the bedside and provides history at this time, as patient is unable to in his current state. She reports that she received a call from the patient's father around 5 PM setting of the patient was acting "off" and speaking incoherently. He did tell them that he took sleep aids, but not how much. Patient's mom counted the pills in his sleep a bottle (diphenhydramine); she believes it was a 96 pill bottle, and that 46 pills were left. She is unsure if he might of taken some the prior day, although the patient had said earlier that he had gone to buy himself a sleep aid that day. Mom at bedside does report that he had an episode earlier this month where he felt despondent, as if things were out of control. However she denies any prior suicide attempts. Patient also takes Klonopin for anxiety attacks; however they did not bring in his medication bottles from home to check pill numbers. Patient's mother believes that he took his regular morning medications, and does not believe there have been any recent change in medications. Mother does note that he sometimes does not remember what pills he takes. No history of seizures. No witnessed seizure-like activity since he took the pills. She does not believe that he has been using alcohol recently, but he does smoke tobacco cigarettes. Patient is hypertensive at 106 bpm at time of admission; SpO2 93% on 2L NC. ED course: NSS 2000 mg IV Unable to obtain ROS at this time. Reached out to [facility]. Recommended supportive care and benzodiazepines as needed. Principal Diagnosis Substance abuse disorder Discharge Exam General: patient resting comfortably, NAD, non-toxic in appearance, answers questions appropriately. Skin: warm, dry, intact HEENT: NC/AT, anicteric sclera, conjunctiva without injection, moist mucus membranes. Heart: +S1/S2, regular, no m/r/g Lungs: equal air entry bilaterally, no rales/rhonchi/wheezes Abd: +BS, soft, NT/ND Ext: warm, no clubbing/cyanosis or edema Neuro: nonfocal, speech intact, no facial droop, moving all extremities. Discharge Data Allergies Allergy/AdvReac Type Severity Reaction Status Date / Time No Known Drug Allergies Allergy Unknown Verified 05/16/24 02:31 fruit skins AdvReac Anaphylaxis Uncoded 10/03/23 14:24 Consultations 05/15/24 19:37 ED Decision to Admit Stat 05/15/24 22:14 Consult Psychiatry Routine Ordered Studies Laboratory Results WBC 8.74 K/ul (4.8-10.8) 05/16/24 05:55 RBC 4.32 M/uL (4.70-6.10) L 05/16/24 05:55 Hgb 12.7 g/dl (14.0-18.0) L 05/16/24 05:55 Hct 39.0 % (42.0-52.0) L 05/16/24 05:55 MCV 90.3 fL (80.0-100.0) 05/16/24 05:55 MCH 29.4 pg (25.0-34.0) 05/16/24 05:55 MCHC 32.6 g/dL (32.0-36.0) 05/16/24 05:55 RDW Std Deviation 44.9 fL (36.4-46.3) 05/16/24 05:55 RDW Coeff of Domitila 13.3 % (11.5-14.5) 05/16/24 05:55 Plt Count 271 K/uL (130-400) 05/16/24 05:55 MPV 8.8 fL (9.4-12.4) L 05/16/24 05:55 Immature Gran % (Auto) 0.3 % 05/15/24 18:08 Neut % (Auto) 53.8 % 05/15/24 18:08 Lymph % (Auto) 23.9 % 05/15/24 18:08 Ritchie % (Auto) 13.7 % 05/15/24 18:08 Eos % (Auto) 7.2 % 05/15/24 18:08 Baso % (Auto) 1.1 % 05/15/24 18:08 Neut # (Auto) 5.01 K/uL (1.40-6.50) 05/15/24 18:08 Lymph # (Auto) 2.23 K/uL (1.20-3.40) 05/15/24 18:08 Ritchie # (Auto) 1.28 K/uL (0.11-0.59) H 05/15/24 18:08 Eos # (Auto) 0.67 K/uL (0.00-0.50) H 05/15/24 18:08 Baso # (Auto) 0.10 K/uL (0.00-0.20) 05/15/24 18:08 Immature Gran # (Auto) 0.03 K/uL (0.01-0.20) 05/15/24 18:08 PT 11.6 Seconds (9.0-12.0) 05/15/24 18:08 INR 1.1 (0.9-1.1) 05/15/24 18:08 VBG pH 7.42 (7.36-7.41) H 05/15/24 19:03 VBG pCO2 42 mmHg (38-50) 05/15/24 19:03 VBG pO2 78 mmHg 05/15/24 19:03 VBG HCO3 27 mmol/L 05/15/24 19:03 VBG O2 Saturation 97.1 % 05/15/24 19:03 VBG Base Excess 2.4 mEq/L 05/15/24 19:03 Sodium 140 mmol/L (136-145) 05/16/24 05:55 Potassium 4.1 mmol/L (3.5-5.1) 05/16/24 05:55 Chloride 110 mmol/L (98-107) H 05/16/24 05:55 Carbon Dioxide 25 mmol/L (21-32) 05/16/24 05:55 Anion Gap 5 (3-11) 05/16/24 05:55 BUN 13 mg/dl (6-23) 05/16/24 05:55 Creatinine 1.00 mg/dl (0.6-1.4) D 05/16/24 05:55 Est Cr Clr Drug Dosing Not Reportable 05/16/24 05:55 Est GFR ( Amer) 116.5 ml/min 05/16/24 05:55 Est GFR (Non-Af Amer) 100.6 ml/min 05/16/24 05:55 BUN/Creatinine Ratio 13.0 (10-20) 05/16/24 05:55 Glucose 75 mg/dl (70-99(Fasting)) 05/16/24 05:55 Lactate 0.9 mmol/L (0.4-2.0) 05/15/24 19:05 Calcium 7.7 mg/dl (8.6-10.3) L 05/16/24 05:55 Magnesium 2.1 mg/dl (1.7-2.4) 05/16/24 05:55 Total Bilirubin 0.6 mg/dl (0.2-1.0) 05/15/24 18:08 AST 46 U/L (13-39) H 05/15/24 18:08 ALT 34 U/L (7-52) 05/15/24 18:08 Alkaline Phosphatase 43 U/L (34-104) 05/15/24 18:08 Troponin I High Sens 13.4 pg/ml (0-20) 05/15/24 18:08 Total Protein 7.3 gm/dl (6.0-8.3) 05/15/24 18:08 Albumin 4.7 gm/dl (3.4-5.0) 05/15/24 18:08 Globulin 2.6 gm/dl (2.5-4.0) 05/15/24 18:08 Albumin/Globulin Ratio 1.8 (0.9-2) 05/15/24 18:08 Urine Color Yellow 05/16/24 02:30 Urine Appearance Clear (Clear) 05/16/24 02:30 Urine pH 6.5 (4.5-7.5) 05/16/24 02:30 Ur Specific [place] 1.013 (1.000-1.030) 05/16/24 02:30 Urine Protein Negative (Negative) 05/16/24 02:30 Urine Glucose (UA) Negative (Negative) 05/16/24 02:30 Urine Ketones Trace (Negative) H 05/16/24 02:30 Urine Blood Negative (Negative) 05/16/24 02:30 Urine Nitrite Negative (Negative) 05/16/24 02:30 Urine Bilirubin Negative (Negative) 05/16/24 02:30 Urine Urobilinogen Negative (Negative) 05/16/24 02:30 Ur Leukocyte Esterase Negative (Negative) 05/16/24 02:30 Salicylates < 3.0 mg/dl (3.0-30) L 05/15/24 18:08 Urine Opiates Screen Neg (Neg) 05/16/24 02:30 Ur Methadone, Qual Neg (Neg) 05/16/24 02:30 Urine Fentanyl Screen Neg (Neg) 05/16/24 02:30 Acetaminophen < 3 ug/ml (10-30) L 05/15/24 18:08 Urine Barbiturates Neg (Neg) 05/16/24 02:30 Ur Phencyclidine (PCP) Neg (Neg) 05/16/24 02:30 U Amphetamin/Meth Scrn Pos (Neg) H 05/16/24 02:30 MDMA (Ecstasy) Screen Neg (Neg) 05/16/24 02:30 U Benzodiazepines Scrn Neg (Neg) 05/16/24 02:30 Ur Cocaine Metabolite Neg (Neg) 05/16/24 02:30 U Marijuana (THC) Screen Neg (Neg) 05/16/24 02:30 Ethyl Alcohol mg/dL < 10.0 mg/dl (<10.0) 05/15/24 18:08 Impressions Chest X-Ray 05/15/24 18:40 SUPINE PORTABLE AP CHEST RADIOGRAPH CLINICAL HISTORY: Overdose. COMPARISON STUDY: No previous studies for comparison. FINDINGS: Lung volumes are normal. Lungs are clear. There is no pneumothorax or pleural effusion. Cardiomediastinal silhouette is unremarkable on supine exam. There is no evidence for pulmonary edema. IMPRESSION: No acute cardiopulmonary findings. ACT 112: Negative or not required by law. Electronically signed by: Brett Zavala M.D. 05/16/2024 8:41 AM Hospital Course (1) Overdose: - Benadryl overdose on the evening of 05/15 - Patient reportedly took 2.5 g of Benadryl (50 mg x 50 tablets) on 05/15 - Patient was mildly tachycardic and hypoxic on arrival - NSS 2000 mL IV given in the ED - Reach out to [facility], supportive care, seizure precautions, strict n.p.o. 05/15 - One-to-one observation - Psychiatry consulted - 0.5 mg IV Ativan prn for anxiety/agitation - Continue IVF maintenance with LR at 125mL/hr x 2 L - Discussed keeping medications locked away with mom and creating a system for dispensing medications - Patient without symptoms 05/16 morning (2) Bipolar 1 disorder: - Held p.o. medications 8/30 PM - Will restart all medications after discharge Plan Disposition: Admit to U telemetry Full code N.p.o. for now, and then advance to regular diet once patient is oriented VTE PPx: Low risk Total Time Total Time Spent Total Time Spent (In Minutes): <30 Discharge Plan Discharge Items Patient Disposition: Home - Self-Care Reason For Visit: BENADRYL OVERDOSE Discharge Diagnosis: Substance abuse disorder Activity: Per Instructions section Non-emergency contact: Primary Care Provider Call non-emergency contact if: you have any medication questions and your pain is not controlled Follow-up/Referrals: Nish Rogers, [Primary Care Provider] - Diet: Regular Addtl Attending Provider Instructions: You were admitted to the hospital for Benadryl overdose. You were treated with supportive care including fluids, Tylenol, and Lorazepam as needed. It is important that you discuss a plan with your mom to avoid another overdose. As we discussed this morning, it will be useful to keep all medications with mom locked up, so that they are readily available without the potential for abuse. We also discussed with your mom the benefit of having a document to track medication administration making it much easier to take your scheduled medications as prescribed. A discharge summary will be sent to your primary care physician to ensure continuity of care. Please bring this discharge summary with you to your next office appointment so that your provider can review it at that time. Follow-up appointments: Make a follow-up appointment with your PCP within the next week. It is very important that you follow up with them shortly after discharge from the hospital. Keep all your follow-up appointments as already scheduled. If you cannot make an appointment, notify your provider. Medications: Your medication list has been reviewed and reconciled upon discharge to ensure accuracy and continuity of care. An updated list of all your medications is included with your hospital discharge paperwork. Please review this list closely, and make note of any changes. If you have any issues filling these prescriptions, please call [phone] and ask to leave a message for Dr. Bach. Take your medications as instructed; do not skip a dose of your medicines. Make sure all of your doctors know every medicine you are taking (including [id number]-[id number] medicines, vitamins, and supplements). Call your primary care provider before taking any new medicines (including over- the-counter medicines, vitamins, and supplements), because some of these may interact with your current medications, or may make your symptoms worse. Tell your primary care provider if you cannot afford your medications. CONTACT YOUR PRIMARY CARE PROVIDER if you experience any of the following: Worsening of symptoms Fever, chills, or fatigue Difficulty following your treatment plan, or difficulty taking medications CALL 911 OR GO TO THE EMERGENCY DEPARTMENT if you experience any of the following: Sudden, severe abdominal pain or nausea/vomiting Severe chest pain, or chest pain that radiates (moves) to your jaw or arm Sudden, severe shortness of breath or difficulty breathing Thank you for allowing us to participate in your care. Pending Studies at Discharge: No Stand-Alone Forms: My [facility] ecomom, Smoking Cessation Medications and DC Order Prescriptions: Continued Latuda 60 mg tablet 120 mg PO QPM Rx Instructions: must administer with food (at least 350 calories) cyclobenzaprine 5 mg tablet 5 - 10 mg PO TID PRN (Reason: muscle spasm) Qty: 30 2RF lamotrigine 100 mg tablet 200 mg PO BID clonazepam 1 mg tablet 1 mg PO HS dextroamphetamine-amphetamine 10 mg tablet 10 mg PO BID dextroamphetamine-amphetamine 20 mg capsule,extended release 24hr 20 mg PO DAILY zolpidem 10 mg tablet 10 mg PO PRN (Reason: Sleep) Discharge Orders: Discharge Order (Routine); Ordered 05/16/24 Ordered By: Lorne Bach Admission Data Admit Date/Time: 05/15/24 20:28 Attending Provider: Joseph Paredes Admit Provider: Scott Leos Primary Care Provider: Nish Rogers Other Providers: Scott Leos; Vannesa Mcgowan; Maxim Malagon; Derrell Cooper Jr; Zahra Pacheco; Jenise Trammell; Josh Castillo Other Interventions: Discharge Summary Assessment (RN) Last Done: 05/16/24 16:58 Supervising Physician Co-Signing Physician Notes I personally examined the patient and verified all biswas points of history and exam, discussed case, and agree with decision making with Dr Bach Feeling better. Still little bit sleepy, but awake and alert. Does not have too much of a dry mouth. Is able to void. Discussed with psychiatry, input greatly appreciated. Vitals noted, in general he is awake and alert fatigued but no distress. HEENT normocephalic atraumatic mucous membranes moist. Breathing unlabored no accessory muscle use good effort. Skin without rashes pallor or icterus. Neuro without focal deficits. Benadryl overdoseno criteria for involuntary commitment. Stable for home. Psychiatry input greatly appreciated. No lasting sequelae from overdose. Plan otherwise per psychiatry. Resident Activity Tracking Resident Involvement: Resident Care Provided Care Provided: Adult Hospital Medicine
[2024-05-16 17:00] VITALS: BP 142/82; PULSE 75; O2SAT 96
--- NOTE | 2024-05-16 18:42 | Billing Data ---
Date of Service May 16, 2024 Coding Level of Care Code 84298 IN/OBS DISCH 30 MIN/LESS
--- NOTE | 2024-05-17 07:24 | Electrocardiogram Report ---
Test Reason : Blood Pressure : */* mmHG Vent. Rate : 70 BPM Atrial Rate : 70 BPM P-R Int : 170 ms QRS Dur : 96 ms QT Int : 414 ms P-R-T Axes : 46 -34 16 degrees QTcB Int : 447 ms Normal sinus rhythm Left axis deviation Abnormal ECG When compared with ECG of 16-May-2024 04:02, No significant change was found Confirmed by Gabriel Cano ([id number] on 05/17/2024 7:24:41 AM Referred By: REFERRED SELF Confirmed By: Gabriel Cano
[2024-05-19 08:47] LABS: Amphetamine Urine, Confirm 1126 ng/mL (<250); Methamphetamine, Ur Confirm NEGATIVE ng/mL (<250)
== END 2024-05-16 16:58 | disposition home or self-care (01) | DRG 917 ==
LOC: ED 17:36 → EDINP 20:28 → INTOOBSV 20:28 → SUATTDRO 20:28 → EDINP 22:14